=== PATIENT | female | born 1980 ===

== ENCOUNTER 2020-05-18 14:03 | Inpatient (IN) ==
[2020-05-18] MEDS ORDERED: Al Hydrox/Mg Hydrox/Simet LIQ 30 ML UDC PO PRN (17:08)
[2020-05-19 08:36] LABS: HDL Cholesterol 60.8 mg/dL
[2020-05-19] MEDS: Vitamin THERAPEUTIC TAB PO SCH (16:16)
[2020-05-20] MEDS: Vitamin THERAPEUTIC TAB PO SCH (10:37)
[2020-05-21] MEDS: Vitamin THERAPEUTIC TAB PO SCH (08:10)
[2020-05-22] MEDS: Vitamin THERAPEUTIC TAB PO SCH (07:59)
[2020-05-22] MEDS ORDERED: Influenza VAC *QUAD* 2020-21* 0.5 ML SYRINGE IM ONE (09:00)
[2020-05-23] MEDS: Vitamin THERAPEUTIC TAB PO SCH (08:27)
[2020-05-24] MEDS: Vitamin THERAPEUTIC TAB PO SCH (09:16)
[2020-05-24] MEDS ORDERED: Paliperidone SUSTENNA 234 MG/1.5 ML IM ONE (12:00)
[2020-05-25] MEDS: Vitamin THERAPEUTIC TAB PO SCH (08:48)
[2020-05-26] MEDS: Vitamin THERAPEUTIC TAB PO SCH (08:18)
[2020-05-27] MEDS ORDERED: Paliperidone SUSTENNA 156 MG/1 ML IM ONE (09:00)
== END 2020-05-27 09:45 | disposition home or self-care (01) | DRG 885 ==
LOC: BSU 15:30
PROVIDERS: ADMIT Psychiatry & Neurology Psychiatry; ATTEND Psychiatry & Neurology Psychiatry